=== PATIENT | female | born 1960 | race Caucasian/White ===

== ENCOUNTER 2017-08-17 12:52 | Inpatient (IN) | payer MEDICARE ==
[2017-08-17] MEDS ORDERED: ONDANSETRON 4 MG/2 ML VIAL IVP STA (13:16)
[2017-08-17] MEDS ORDERED: SODIUM CHLORIDE 0.9% 1,000 ML IV STA (13:16)
[2017-08-17 13:17] LABS: Glucose,Whole Blood 146 mg/dL (75-99)
[2017-08-17 13:35] LABS: Basophils # (A) 0.1 k/uL (0-0.2); Basophils % (A) 1 %; Eosinophils # (A) 0.1 k/uL (0-0.7); Eosinophils % (A) 1 %; HCT 42.4 % (34.0-46.0); HGB 13.6 gm/dL (11.4-16.0); Lymphocytes # (A) 2.2 k/uL (1.0-4.8); Lymphocytes % (A) 17 %; MCH 30.1 pg (25.0-35.0); MCHC 32.1 g/dL (31.0-37.0); MCV 93.6 fL (80.0-100.0); Mean Platelet Volume 7.4; Monocytes # (A) 0.4 k/uL (0-1.0); Monocytes % (A) 3 %; Neutrophils # (A) 9.5 k/uL (1.3-7.7); Neutrophils % (A) 77 %; Platelet Count 345 k/uL (150-450); RBC 4.53 m/uL (3.80-5.40); RDW 12.6 % (11.5-15.5); WBC 12.4 k/uL (3.8-10.6)
[2017-08-17 13:43] LABS: INR 1.1 (<1.2); Partial Thromboplastin Time 25.6 sec (22.0-30.0); Prothrombin Time 10.8 sec (9.0-12.0)
[2017-08-17 13:44] LABS: ALT 35 U/L (9-52); AST 25 U/L (14-36); Albumin 4.2 g/dL (3.5-5.0); Alkaline Phosphatase 96 U/L (38-126); Anion Gap 14 mmol/L; Blood Urea Nitrogen 14 mg/dL (7-17); Calcium 9.9 mg/dL (8.4-10.2); Carbon Dioxide 24 mmol/L (22-30); Chloride 104 mmol/L (98-107); Glucose 136 mg/dL (74-99); Potassium 3.7 mmol/L (3.5-5.1); Sodium 142 mmol/L (137-145); Total Bilirubin 1.1 mg/dL (0.2-1.3); Total Protein 7.9 g/dL (6.3-8.2)
[2017-08-17 13:55] LABS: Creatine Kinase 69 U/L (30-135)
[2017-08-17 14:08] LABS: Creatine Kinase MB <0.2 ng/mL (0.0-2.4); Troponin I <0.012 ng/mL (0.000-0.034)
--- NOTE | 2017-08-17 14:18 | CT ---
CT brain without contrast HISTORY: Left-sided numbness Helical acquisition through the brain, dose reduction techniques utilized DLP 1147.75 Cerebral vascular calcifications are present. There is no hemorrhage or hydrocephalus. Periventricula r and subcortical white matter shows patchy low attenuation. No mass effect. Calvarium is intact. Inf lammatory change present in the sphenoid ethmoidal region. The orbits show symmetric appearance. Ques tionable prominence of the basilar artery at its tip. Low-attenuation in the basal ganglia and caudat e on the right is compatible with local encephalomalacia or possibly subacute infarct. IMPRESSION: Chronic small vessel ischemic changes. Consider MRI to assess for subacute infarct. No ev ident hemorrhage.
--- NOTE | 2017-08-17 14:28 | CT ---
EXAMINATION TYPE: CODE STROKE: CTA head neck DATE OF EXAM: 08/17/2017 HISTORY: Left sided numbness. COMPARISON: NONE CT DLP: 443.25 mGycm. Automated Exposure Control for Dose Reduction was Utilized. TECHNIQUE: CTA scan of the neck is performed with IV Contrast, patient injected with 65 mL of , axia l images are obtained, coronal and sagittal reformatted images are reviewed. Three-D reconstructed im ages are created on an independent workstation and reviewed. FINDINGS: Carotid/Vascular Structures: There is no evident filling defect to suggest embolism. Prominence of th e basilar tip on noncontrast exam is artifactual, there is no evident aneurysm in the [place] shows patent anterior and posterior circulation. 3 super aortic branch vessels ar e present, there is atheromatous change present, the subclavian arteries, innominate, left and right common carotid arteries are patent. No significant stenosis of the proximal internal carotid arteries is evident. There are atheromatous changes present at the carotid bulb levels. The vertebral arterie s are patent. Other: Multiple poorly defined nodular densities are present in the upper lobes bilaterally. Postop c hanges are noted to the cervical spine. IMPRESSION: Nonspecific upper lobe areas of increased attenuation within the lungs could be due to he morrhage, infection. Findings could represent metastatic disease within the lungs, correlate. No evid ent emboli phenomenon to the brain
--- NOTE | 2017-08-17 14:30 | XR ---
EXAMINATION TYPE: XR chest 2V DATE OF EXAM: 08/17/2017 COMPARISON: NONE HISTORY: Shortness of breath TECHNIQUE: Frontal and lateral views of the chest are obtained. FINDINGS: Scattered senescent parenchymal changes noted. Hyperinflation compatible with COPD. No evidence for infiltrate. No evidence for atelectasis. Heart size is stable. Mediastinal structures are stable and grossly unremarkable. No evidence for hilar prominence. Degenerative changes dorsal spine. IMPRESSION: 1. No evidence for acute pulmonary disease.
--- NOTE | 2017-08-17 14:35 | ED ---
Neuro HPI - General Chief Complaint: Neuro Symptoms/Deficit Stated Complaint: Stroke symtoms Time Seen by Provider: 08/17/17 13:11 Source: EMS Mode of arrival: EMS Limitations: no limitations - History of Present Illness Is the patient presenting with stroke symptoms?: Yes Last Known Well Date: 08/16/17 Last Known Well Time: 21:00 Onset/Timin -: unknown, awoke with symptoms Initial Comments: 56 years old female went to bed last night around 9 PM she was feeling fine she woke up 7 AM this morning she was unable to move her left upper extremity and left lower extremity, she has no idea what time the symptoms started she noticed her symptoms 7 AM this morning. She does have a headache no blurred vision no chest pain or shortness of breath no abdominal pain no frequency urgency dysuria she definitely had a CVA. She does have a history of myocardial infarction, severe coronary artery disease she has a stent in place and she is on a blood thinners, she did take aspirin this morning at home and she noticed symptoms Time: 21:00 Last Observed Normal: 21:00 Location: speech, left arm, left leg History of same: No Place: home Severity: severe Quality: constant Improves With: none Worsens With: none On Anticoagulants: Yes (plavix) Context: recent fall (She fell this morning and complaining about left-sided rib cage pain), other (unknown) Associated Symptoms: headaches Treatments Prior to Arrival: Aspirin (Home meds reviewed), other (plavix) - Related Data Home Medications: Home Medications Medication Instructions Recorded Confirmed Adalimumab [Humira Pen] 40 mg SQ TH 08/17/17 08/17/17 Aspirin 81 mg PO DAILY 08/17/17 08/17/17 Carvedilol [Coreg] 3.125 mg PO BID 08/17/17 08/17/17 Clopidogrel Bisulfate [Plavix] 75 mg PO DAILY 08/17/17 08/17/17 Diazepam [Valium] 5 mg PO BID PRN 08/17/17 08/17/17 Ergocalciferol [Vitamin D2] 50,000 unit PO TU 08/17/17 08/17/17 Folic Acid 1 mg PO DAILY 08/17/17 08/17/17 Levothyroxine Sodium [Synthroid] 125 mcg PO DAILY 08/17/17 08/17/17 Lisinopril [Prinivil] 20 mg PO DAILY 08/17/17 08/17/17 Methotrexate Injection 20 mg SQ WE 08/17/17 08/17/17 Nitroglycerin Sl Tabs [Nitrostat] 0.4 mg SUBLINGUAL Q5M PRN 08/17/17 08/17/17 oxyCODONE HCL/ACETAMINOPHEN 1 tab PO TID PRN 08/17/17 08/17/17 [Percocet 10-325 mg] Allergies/Adverse Reactions: Allergies Allergy/AdvReac Type Severity Reaction Status Date / Time prochlorperazine Allergy Unknown Verified 08/17/17 13:27 [From Compazine] Review of Systems ROS Statement: Those systems with pertinent positive or pertinent negative responses have been documented in the HPI. ROS Other: All systems not noted in ROS Statement are negative. General Exam Limitations: no limitations Stroke MDM - Lab Data Result diagrams: 08/17/17 13:00 08/17/17 13:00 Lab Results 08/17/17 08/17/17 08/17/17 Range/Units 13:00 13:00 13:00 WBC 12.4 H (3.8-10.6) k/uL RBC 4.53 (3.80-5.40) m/uL Hgb 13.6 (11.4-16.0) gm/dL Hct 42.4 (34.0-46.0) % MCV 93.6 (80.0-100.0) fL MCH 30.1 (25.0-35.0) pg MCHC 32.1 (31.0-37.0) g/dL RDW 12.6 (11.5-15.5) % Plt Count 345 (150-450) k/uL Neutrophils % 77 % Lymphocytes % 17 % Monocytes % 3 % Eosinophils % 1 % Basophils % 1 % Neutrophils # 9.5 H (1.3-7.7) k/uL Lymphocytes # 2.2 (1.0-4.8) k/uL Monocytes # 0.4 (0-1.0) k/uL Eosinophils # 0.1 (0-0.7) k/uL Basophils # 0.1 (0-0.2) k/uL PT (9.0-12.0) sec INR (<1.2) APTT (22.0-30.0) sec Sodium 142 (137-145) mmol/L Potassium 3.7 (3.5-5.1) mmol/L Chloride 104 (98-107) mmol/L Carbon Dioxide 24 (22-30) mmol/L Anion Gap 14 mmol/L BUN 14 (7-17) mg/dL Creatinine 0.59 (0.52-1.04) mg/dL Est GFR (MDRD) Af Amer >60 (>60 ml/min/1.73 sqM) Est GFR (MDRD) Non-Af >60 (>60 ml/min/1.73 sqM) Glucose 136 H (74-99) mg/dL POC Glucose (mg/dL) (75-99) mg/dL POC Glu Relay Engineer ID Calcium 9.9 (8.4-10.2) mg/dL Total Bilirubin 1.1 (0.2-1.3) mg/dL AST 25 (14-36) U/L ALT 35 (9-52) U/L Alkaline Phosphatase 96 (38-126) U/L Total Creatine Kinase 69 (30-135) U/L CK-MB (CK-2) <0.2 (0.0-2.4) ng/mL CK-MB (CK-2) Rel Index Troponin I <0.012 (0.000-0.034) ng/mL Total Protein 7.9 (6.3-8.2) g/dL Albumin 4.2 (3.5-5.0) g/dL 08/17/17 08/17/17 Range/Units 13:00 13:15 WBC (3.8-10.6) k/uL RBC (3.80-5.40) m/uL Hgb (11.4-16.0) gm/dL Hct (34.0-46.0) % MCV (80.0-100.0) fL MCH (25.0-35.0) pg MCHC (31.0-37.0) g/dL RDW (11.5-15.5) % Plt Count (150-450) k/uL Neutrophils % % Lymphocytes % % Monocytes % % Eosinophils % % Basophils % % Neutrophils # (1.3-7.7) k/uL Lymphocytes # (1.0-4.8) k/uL Monocytes # (0-1.0) k/uL Eosinophils # (0-0.7) k/uL Basophils # (0-0.2) k/uL PT 10.8 (9.0-12.0) sec INR 1.1 (<1.2) APTT 25.6 (22.0-30.0) sec Sodium (137-145) mmol/L Potassium (3.5-5.1) mmol/L Chloride (98-107) mmol/L Carbon Dioxide (22-30) mmol/L Anion Gap mmol/L BUN (7-17) mg/dL Creatinine (0.52-1.04) mg/dL Est GFR (MDRD) Af Amer (>60 ml/min/1.73 sqM) Est GFR (MDRD) Non-Af (>60 ml/min/1.73 sqM) Glucose (74-99) mg/dL POC Glucose (mg/dL) 146 H (75-99) mg/dL POC Glu Relay Engineer ID [place], Genia Calcium (8.4-10.2) mg/dL Total Bilirubin (0.2-1.3) mg/dL AST (14-36) U/L ALT (9-52) U/L Alkaline Phosphatase (38-126) U/L Total Creatine Kinase (30-135) U/L CK-MB (CK-2) (0.0-2.4) ng/mL CK-MB (CK-2) Rel Index Troponin I (0.000-0.034) ng/mL Total Protein (6.3-8.2) g/dL Albumin (3.5-5.0) g/dL Past Medical History Past Medical History: Hypertension Additional Past Medical History / Comment(s): lupus, sjogrens History of Any Multi-Drug Resistant Organisms: None Reported Past Surgical History: Adenoidectomy, Appendectomy, Cholecystectomy, Heart Catheterization With Stent, Hysterectomy, Tonsillectomy Past Psychological History: No Psychological Hx Reported Smoking Status: Current every day smoker Past Alcohol Use History: None Reported Past Drug Use History: None Reported Course Vital Signs 08/17/17 08/17/17 08/17/17 12:53 13:08 13:23 Temperature 99.8 F H Pulse Rate 88 80 92 Respiratory 18 18 18 Rate Blood Pressure 187/91 173/83 188/83 O2 Sat by Pulse 97 97 97 Oximetry 08/17/17 08/17/17 13:53 15:18 Temperature Pulse Rate 81 89 Respiratory 18 18 Rate Blood Pressure 182/82 185/77 O2 Sat by Pulse 99 96 Oximetry Him EKG is normal sinus rhythm ventricular rate is 88 OR interval is 150 QRS duration is 92 QT/QTc is 400/484 review of this EKG reveals T-wave inversion in lead [address] elevation or ST depression noticed this EKG She is reassessed at 1420, white count is slightly elevated INR is normal troponin is normal, BS metabolic panel is all normal EKG is within normal range head CT is unremarkable, CT angiogram chest x-ray are pending at this point that ,, considering, CVA And definitely sometime between 9 PM last night and 7 AM this morning considering that she is not a candidate for any thrombolytics at this point she be admitted to Dr. Kaur service and will consult neurology - Reevaluation(s) Reevaluation #1: I did speak with Dr. Polanco at the 15th for reduction and agrees with the aspirin 81 mg daily 15:49 Reevaluation #2: Also noticed some findings on the chest where there is a question of metastatic disease that needs to be sorted out (admitted 08/17/17 15:50 Disposition Clinical Impression: CVA (cerebral vascular accident), Hypertension, Lung nodules Disposition: ADMITTED IP TO THIS HOSP
[2017-08-17] MEDS ORDERED: NALOXONE 0.4 MG/ML 1 ML VIAL IV PRN (14:43)
[2017-08-17] MEDS ORDERED: NITROGLYCERIN SL TABS 0.4 MG TAB SUBLINGUAL PRN (14:47)
[2017-08-17] MEDS ORDERED: ADALIMUMAB 80 MG/1.6 ML KIT SQ SCH (15:00)
[2017-08-17] MEDS ORDERED: LORazepam 1 MG TAB PO STA (15:55)
[2017-08-17] MEDS: oxyCODONE-APAP 10-325MG 1 EACH TAB PO PRN (19:53)
[2017-08-17] MEDS: CARVEDILOL 3.125 MG TAB PO SCH (20:47)
[2017-08-18] MEDS: DIAZEPAM 5 MG TAB PO PRN ×3 (01:03→22:07)
[2017-08-18] MEDS: oxyCODONE-APAP 10-325MG 1 EACH TAB PO PRN ×4 (02:48→23:20)
[2017-08-18 06:07] LABS: Basophils # (A) 0.1 k/uL (0-0.2); Basophils % (A) 1 %; Eosinophils # (A) 0.2 k/uL (0-0.7); Eosinophils % (A) 1 %; HCT 38.1 % (34.0-46.0); HGB 12.5 gm/dL (11.4-16.0); Lymphocytes # (A) 3.5 k/uL (1.0-4.8); Lymphocytes % (A) 28 %; MCH 30.2 pg (25.0-35.0); MCHC 32.9 g/dL (31.0-37.0); MCV 91.9 fL (80.0-100.0); Mean Platelet Volume 6.7; Monocytes # (A) 0.5 k/uL (0-1.0); Monocytes % (A) 4 %; Neutrophils % (A) 64 %; Platelet Count 311 k/uL (150-450); RBC 4.15 m/uL (3.80-5.40); RDW 12.7 % (11.5-15.5); WBC 12.5 k/uL (3.8-10.6)
[2017-08-18 06:24] LABS: Anion Gap 12 mmol/L; Blood Urea Nitrogen 12 mg/dL (7-17); Carbon Dioxide 25 mmol/L (22-30); Chloride 106 mmol/L (98-107); Cholesterol 198 mg/dL (<200); Glucose 100 mg/dL (74-99); HDL Cholesterol 28 mg/dL (40-60); LDL Cholesterol,Calculated 141 mg/dL (0-99); Potassium 3.1 mmol/L (3.5-5.1); Sodium 143 mmol/L (137-145); Triglycerides 143 mg/dL (<150)
[2017-08-18] MEDS: CARVEDILOL 3.125 MG TAB PO SCH ×2 (06:44→15:48)
[2017-08-18] MEDS: LEVOTHYROXINE 125 MCG TAB PO SCH (06:44)
[2017-08-18] MEDS: FOLIC ACID 1 MG TAB PO SCH (08:03)
[2017-08-18] MEDS: LISINOPRIL 20 MG TAB PO SCH (08:03)
[2017-08-18] MEDS ORDERED: LISINOPRIL 20 MG TAB PO SCH (09:00)
[2017-08-18] MEDS: ONDANSETRON 4 MG/2 ML VIAL IVP PRN (10:05)
[2017-08-18] MEDS: CLOPIDOGREL 75 MG TAB PO SCH (12:18)
[2017-08-18] MEDS: ASPIRIN 81 MG PO SCH (12:18)
--- NOTE | 2017-08-18 13:55 | HP ---
HISTORY AND PHYSICAL CHIEF COMPLAINT: Left hemiparesis. HISTORY OF PRESENT ILLNESS: This is the first admission for this 56-year-old white female. She woke up in the morning and could not move the left side. She had no difficulty with speech. She had no headache. She had no chest pain, syncope, change in vision hearing, etc. She came to emergency room where she was found to have a dense right CVA. She had a CTA of the brain that was negative. REVIEW OF SYSTEMS: She has had no other symptoms. She has had no fever, chills, cough, abdominal pain, vomiting, diarrhea, urinary complaints, diabetes, etc. Past medical history, family history and personal and social histories reveal that she is allergic to COMPAZINE. Surgically, she has had hysterectomy, appendectomy, cholecystectomy, and a procedure on her neck. She has coronary artery disease and has had stent placed in her LAD. She also has hypertension. She does smoke. She also has a history of lupus and Sjogren's syndrome. PHYSICAL EXAMINATION: Blood pressure is 146/90 with a pulse of 83, respirations of 32 and she is afebrile. In general, she appeared to be well developed, well nourished, in no acute distress. Skin color is normal. Skin is warm, dry. Lymph nodes are not enlarged. Head, ears, eyes, nose, mouth, and throat were normal. Neck veins were not distended. Thyroid is not enlarged. Carotids normal. There are no bruits. The chest is clear to auscultation and percussion. Cardiac exam demonstrated a normal sinus rhythm and no murmurs or extra sounds. Abdomen is soft and nontender without visceromegaly or masses. Bowel sounds are present. Extremities were normal. Neurologically, she had a dense left hemiparesis. Cognitive function was normal and speech was. She is right-handed. She is admitted to the hospital with diagnoses: 1. Completed right-sided cerebrovascular accident with left hemiparesis. 2. History of hypertension. 3. History of lupus. 4. Sjogren's syndrome. 5. History of coronary artery disease, status post stenting in the LAD. 6. Chronic obstructive pulmonary disease. PLAN: 1. Bed rest. 2. IV fluids. 3. Neurology consult. 4. OT, PT and discharge planning. MMODL / IJN: [id number] /
[2017-08-18 14:15] VITALS: BMI 22.6
--- NOTE | 2017-08-18 15:55 | PN ---
PROGRESS NOTE CHIEF COMPLAINT: Right-sided CVA with a dense left hemiparesis. HISTORY OF PRESENT ILLNESS: This lady is now stable and there has been no interval change. She is clearly very concerned. PHYSICAL EXAM: She is oriented and alert. Speech is normal. Carotids normal and the chest is clear. Cardiac is normal with no murmurs or extra sounds. The abdomen is soft, nontender. Dense left hemiparesis remains. IMPRESSION: 1. Right-sided cerebrovascular accident. 2. Hypokalemia. PLAN: 1. MRI of the brain. 2. Increase activity. 3. PT and OT. MMODL / IJN: [id number] /
--- NOTE | 2017-08-18 17:23 | P.CONS ---
History of Present Illness - Reason for Consult Consult date: 08/18/17 Stroke - Chief Complaint Sided weakness - History of Present Illness She is a pleasant 56-year-old female being evaluated by the neurology service for stroke. She was in her bed at home about 7 AM this morning unable to move her left upper and lower extremities. She denied headache or head injury. She denied recent illness. She denied having any difficulty with speech or word finding. There was no loss of consciousness or chest pain. She had no changes in her hearing or vision. She has a very significant history of cardiovascular disease. Her home medications are included Plavix and aspirin. She says she is ALLERGIC to all cholesterol medications. Initial CT of the brain was done in the emergency room and showed only chronic small vessel ischemic changes. There were no acute intracranial abnormalities. However there was low attenuation in the basal ganglia and caudate on the right which may be compatible with the area of local encephalomalacia or subacute infarct. An MRI has been ordered already. At this time my exam she is being evaluated by physical therapy and she is showing complete left-sided weakness. Review of Systems All systems: negative Constitutional: Reports as per HPI Past Medical History Past Medical History: Hypertension Additional Past Medical History / Comment(s): lupus, sjogrens Last Myocardial Infarction Date:: UNK History of Any Multi-Drug Resistant Organisms: None Reported Past Surgical History: Adenoidectomy, Appendectomy, Cholecystectomy, Heart Catheterization With Stent, Hysterectomy, Tonsillectomy Additional Past Surgical History / Comment(s): CERVICAL FUSION HAS PLATE/SCREWS AND CADAVER BONE. Past Anesthesia/Blood Transfusion Reactions: No Reported Reaction Date of Last Stent Placement:: UNK Past Psychological History: No Psychological Hx Reported Smoking Status: Current every day smoker Past Alcohol Use History: None Reported Past Drug Use History: None Reported - Past Family History Mother Family Medical History: Coronary Artery Disease (CAD), Diabetes Mellitus Additional Family Medical History / Comment(s): CABG Father Family Medical History: Coronary Artery Disease (CAD), Diabetes Mellitus, Myocardial Infarction ([place]), Vascular Disorder Medications and Allergies Home Medications Medication Instructions Recorded Confirmed Type Adalimumab [Humira Pen] 40 mg SQ TH 08/17/17 08/17/17 History Carvedilol [Coreg] 3.125 mg PO BID 08/17/17 08/17/17 History Clopidogrel Bisulfate [Plavix] 75 mg PO DAILY 08/17/17 08/17/17 History Diazepam [Valium] 5 mg PO BID PRN 08/17/17 08/17/17 History Ergocalciferol [Vitamin D2] 50,000 unit PO TU 08/17/17 08/17/17 History Levothyroxine Sodium [Synthroid] 125 mcg PO DAILY 08/17/17 08/17/17 History Lisinopril [Prinivil] 20 mg PO DAILY 08/17/17 08/17/17 History Methotrexate Injection 20 mg SQ WE 08/17/17 08/17/17 History Nitroglycerin Sl Tabs [Nitrostat] 0.4 mg SUBLINGUAL Q5M PRN 08/17/17 08/17/17 History RX: Aspirin 81 mg PO DAILY 08/17/17 08/17/17 History RX: Folic Acid 1 mg PO DAILY 08/17/17 08/17/17 History oxyCODONE HCL/ACETAMINOPHEN 1 tab PO TID PRN 08/17/17 08/17/17 History [Percocet 10-325 mg] Allergies Allergy/AdvReac Type Severity Reaction Status Date / Time prochlorperazine Allergy Unknown Verified 08/17/17 13:27 [From Compazine] Cmrnnzc-Tzy-Zks Reductase Allergy Unknown Verified 08/18/17 17:12 Inhibitor Physical Exam Vitals: Vital Signs Temp Pulse Pulse Resp BP BP Pulse Ox 08/18/17 15:58 16 08/18/17 15:53 68 16 195/92 96 08/18/17 11:58 16 08/18/17 11:56 67 16 159/87 94 L 08/18/17 08:00 97.4 F L 73 16 150/86 08/18/17 04:00 99.6 F 84 18 178/84 95 08/18/17 03:28 73 18 08/18/17 00:00 99 F 73 18 175/78 98 08/17/17 20:00 98.8 F 89 18 200/92 98 08/17/17 18:48 97.8 F 97 18 195/91 98 Intake and Output 08/18/17 08/18/17 08/18/17 06:59 14:59 22:59 Intake Total 820 955 Output Total 100 Balance 820 855 Intake: IV 60 0.9 @ 20ml 60 Intake, IV Titration 560 600 Amount Sodium Chloride 0.9% 1, 560 600 000 ml @ 100 mls/hr IV . Q10H STA Rx#:[id number] Oral 200 355 Output: Urine 100 Other: Voiding Method Bedside Commode Bedside Commode Bedside Commode # Voids 1 Weight 56.3 kg 56.3 kg Patient Weight 08/19/17 06:59 Weight 56.3 kg - Constitutional General appearance: no average body habitus, cooperative, mild distress, thin - EENT Eyes: no abnormal pupil, EOMI, PERRLA, no ptosis ENT: hearing grossly normal - Neck Neck: normal ROM, no rigidity - Respiratory Respiratory: negative: prolonged expiration, prolonged inspiration - Cardiovascular Rhythm: regular - Gastrointestinal General gastrointestinal: no distended, no tenderness - Neurologic She is alert awake and oriented 3. Speech and language are normal. She has left facial droop. There is left hemiparesis. Significant sensory deficit is found in the left upper and lower extremities. She does have sensation in the left face but there is continuous numbness and tingling. There is no right sided weakness or sensory deficit. I did have her take a drink of her soda at bedside through the straw. She did seem to aspirate a little and started coughing. Her family said that she ate her entire meal and drank her liquids without incidence. Results CBC & Chem 7: 08/18/17 05:52 08/18/17 05:52 Labs: Abnormal Lab Results - Last 24 Hours (Table) 08/18/17 08/18/17 Range/Units 05:52 05:52 WBC 12.5 H (3.8-10.6) k/uL Neutrophils # 8.0 H (1.3-7.7) k/uL Potassium 3.1 L (3.5-5.1) mmol/L Glucose 100 H (74-99) mg/dL LDL Cholesterol, Calc 141 H (0-99) mg/dL HDL Cholesterol 28 L (40-60) mg/dL Assessment and Plan (1) Lupus Current Visit: Yes Status: Chronic Code(s): L93.0 - DISCOID LUPUS ERYTHEMATOSUS SNOMED Code(s): 959299552 (2) Sjoegren syndrome Current Visit: Yes Status: Chronic Code(s): M35.00 - SICCA SYNDROME, UNSPECIFIED SNOMED Code(s): 13086901 (3) Coronary artery disease Current Visit: Yes Status: Chronic Code(s): I25.10 - ATHSCL HEART DISEASE OF [place] CORONARY ARTERY W/O ANG PCTRS SNOMED Code(s): 52986466 (4) COPD (chronic obstructive pulmonary disease) Current Visit: Yes Status: Chronic Code(s): J44.9 - CHRONIC OBSTRUCTIVE PULMONARY DISEASE, UNSPECIFIED SNOMED Code(s): 04930217 (5) Left hemiparesis Current Visit: Yes Status: Acute Code(s): G81.94 - HEMIPLEGIA, UNSPECIFIED AFFECTING LEFT NONDOMINANT SIDE SNOMED Code(s): 754380354 (6) Dysphagia Current Visit: Yes Status: Acute Code(s): R13.10 - DYSPHAGIA, UNSPECIFIED SNOMED Code(s): 52906692 (7) CVA (cerebral vascular accident) Current Visit: Yes Status: Acute Code(s): I63.9 - CEREBRAL INFARCTION, UNSPECIFIED SNOMED Code(s): 465936880 (8) Hypertension Current Visit: Yes Status: Chronic Code(s): I10 - ESSENTIAL (PRIMARY) HYPERTENSION SNOMED Code(s): 27449503 Plan: She seems to have suffered a significant stroke in a right middle cerebral artery distribution. As above MRI is pending. She will continue anticoagulation as prescribed. She is ALLERGIC to all antihyperlipidemics. Physical therapy, occupational therapy, and speech therapy will continue to evaluate. Continue neurological checks. She had a CTA of the head and neck that showed no significant flow-limiting stenosis. There was finding of a possible area of increased attenuation in the upper low of the lungs. A chest x -ray was normal. Because of her fall she is having some significant tenderness on the left side in the lower ribs. I will order a rib series to check for fracture. We will continue to follow and make further recommendations based on the above studies. I have performed a history and physical on the above patient. I have reviewed the above note, and agree.
--- NOTE | 2017-08-18 20:17 | XR ---
EXAMINATION TYPE: XR ribs LT DATE OF EXAM: 08/18/2017 COMPARISON: NONE HISTORY: Left rib pain after a fall TECHNIQUE: 4 views FINDINGS: I see no pleural effusion or pneumothorax. Left lung is clear of infiltrate. I see no rib f racture. IMPRESSION: Negative left rib exam.
[2017-08-18] MEDS: POTASSIUM CHLORIDE ER 20 MEQ TAB.ER PO SCH (20:33)
--- NOTE | 2017-08-19 01:04 | MR ---
EXAMINATION TYPE: MR brain wo/w con DATE OF EXAM: 08/18/2017 COMPARISON: NONE HISTORY: Left sided numbness, TECHNIQUE: Multiplanar, multisequence images of the brain and brainstem is performed without and with IV contras t, utilizing 5.5 mL intravenous Gadavist . FINDINGS: On the diffusion images there is a somewhat linear area of abnormal increased signal in the basal khalif glia on the right side involving the right internal capsule. This measures 4 x 1 cm and is consistent with acute infarct. There is no midline shift. There is no sign of intracranial hemorrhage. I see no other areas of acute infarct. Ventricles of normal size. There is no mass effect. On the FLAIR images there are numerous foci of abnormal increased signal in the periventricular white matter. Total number is probably 50. These measure up to 1 cm. The brainstem is intact. Cerebellum is intact. The sella turcica appears normal. Contrast images show no pathologic enhancement. IMPRESSION: There is evidence of an acute large infarct in the right internal capsule. No hemorrhage. Extensive white matter changes in both cerebral hemispheres. I would consider both demyelinating dise ase and extensive chronic small vessel ischemia. Clinical correlation is recommended.
[2017-08-19] MEDS: CARVEDILOL 3.125 MG TAB PO SCH ×2 (06:45→16:42)
[2017-08-19] MEDS: LEVOTHYROXINE 125 MCG TAB PO SCH (06:45)
[2017-08-19] MEDS: oxyCODONE-APAP 10-325MG 1 EACH TAB PO PRN ×2 (06:45→16:45)
[2017-08-19] MEDS: ASPIRIN 81 MG PO SCH (09:21)
[2017-08-19] MEDS: LISINOPRIL 20 MG TAB PO SCH (09:21)
[2017-08-19] MEDS: CLOPIDOGREL 75 MG TAB PO SCH (09:21)
[2017-08-19] MEDS: POTASSIUM CHLORIDE ER 20 MEQ TAB.ER PO SCH ×2 (09:22→20:54)
[2017-08-19] MEDS: FOLIC ACID 1 MG TAB PO SCH (11:28)
[2017-08-19] MEDS: DIAZEPAM 5 MG TAB PO PRN ×2 (11:28→22:11)
--- NOTE | 2017-08-19 14:26 | PN ---
PROGRESS NOTE CHIEF COMPLAINT: CVA. HISTORY OF PRESENT ILLNESS: This lady's condition is unchanged. She still has a dense left hemiparesis. She is very upset about this. She is quite depressed. This is all understandable. She is also was complaining of some pain over the xiphoid process, which is probably related to her falling. REVIEW OF SYSTEMS: She has no other new complaints or concerns. PHYSICAL EXAM: CHEST: Clear. The cardiac exam is normal. She is a bit tender over the sternum. Abdomen is soft, nontender and hemiparesis is same. IMPRESSION: 1. Right-sided CVA with left hemiparesis. 2. Tenderness and pain over the xiphoid process probably due to trauma. PLAN: We talked to her at length about the plan for rehab and physical therapy and she may she may decide to have this done in the [place] area which would be reasonable because she has more friends in that area. She lives with a boyfriend who apparently just had surgery and probably will not be able to help her out much in short run. MMODL / IJN: [id number] /
--- NOTE | 2017-08-19 16:23 | P.PN ---
Subjective Progress Note Date: 08/19/17 Principal diagnosis: Stroke This is a pleasant 56-year-old female continuing to be evaluated by the neurology service for stroke. She continues to have dense left hemiparesis. She was having some problems swallowing liquids but this was found to be only through a straw. She has been drinking and eating without evidence of choking or aspiration. Her MRI of the brain did show a right internal carotid stroke. With diffuse chronic small vessel ischemic changes. She has a significant history of cardiovascular disease. She is already on Plavix and aspirin. She is ALLERGIC to all cholesterol medications. At the time of my evaluation she is resting comfortably in bed in no acute distress. She is still having some lower sternum and left lower rib pain. Her x-ray of the ribs was normal. Objective - Vital Signs Vital signs: Vital Signs Temp 99.3 F 08/19/17 15:48 Pulse 72 08/19/17 16:00 Resp 16 08/19/17 16:00 BP 134/85 08/19/17 15:48 Pulse Ox 94 L 08/19/17 15:48 Intake & Output 08/18/17 08/19/17 08/19/17 18:59 06:59 18:59 Intake Total 1192 320 354 Output Total 100 800 Balance 1092 -480 354 Weight 56.3 kg 61.5 kg Intake: IV 320 0.9 @ 20ml 320 Intake, IV Titration 600 Amount Sodium Chloride 0.9% 1, 600 000 ml @ 100 mls/hr IV . Q10H STA Rx#:[id number] Oral 592 354 Output: Urine 100 800 Other: Voiding Method Bedside Commode Bedside Commode Bedside Commode # Voids 3 1 - Constitutional General appearance: Present: average body habitus, cooperative, no acute distress - EENT Eyes: Present: EOMI, PERRLA. Absent: abnormal pupil, ptosis ENT: Present: hearing grossly normal - Neck Neck: Present: normal ROM. Absent: rigidity - Respiratory Respiratory: negative: prolonged expiration, prolonged inspiration - Cardiovascular Rhythm: regular - Neurologic Neurologic Comment(s): She is alert awake and oriented 3. Speech and language are normal. Left facial droop remains. No significant movement of the left upper or lower extremity. Definite sensory deficit in upper and lower left extremities. No tremors or seizure-like activities are seen. No deficits on the right side. - Labs CBC & Chem 7: 08/18/17 05:52 08/18/17 05:52 Assessment and Plan (1) Lupus Current Visit: Yes Status: Chronic Code(s): L93.0 - DISCOID LUPUS ERYTHEMATOSUS SNOMED Code(s): 305061543 (2) Sjoegren syndrome Current Visit: Yes Status: Chronic Code(s): M35.00 - SICCA SYNDROME, UNSPECIFIED SNOMED Code(s): 33866518 (3) Coronary artery disease Current Visit: Yes Status: Chronic Code(s): I25.10 - ATHSCL HEART DISEASE OF [place] CORONARY ARTERY W/O ANG PCTRS SNOMED Code(s): 92432307 (4) COPD (chronic obstructive pulmonary disease) Current Visit: Yes Status: Chronic Code(s): J44.9 - CHRONIC OBSTRUCTIVE PULMONARY DISEASE, UNSPECIFIED SNOMED Code(s): 86361603 (5) Left hemiparesis Current Visit: Yes Status: Acute Code(s): G81.94 - HEMIPLEGIA, UNSPECIFIED AFFECTING LEFT NONDOMINANT SIDE SNOMED Code(s): 279311278 (6) Dysphagia Current Visit: Yes Status: Acute Code(s): R13.10 - DYSPHAGIA, UNSPECIFIED SNOMED Code(s): 19539058 (7) CVA (cerebral vascular accident) Current Visit: Yes Status: Acute Code(s): I63.9 - CEREBRAL INFARCTION, UNSPECIFIED SNOMED Code(s): 053490576 (8) Hypertension Current Visit: Yes Status: Chronic Code(s): I10 - ESSENTIAL (PRIMARY) HYPERTENSION SNOMED Code(s): 01801414 Plan: She has suffered a significant stroke of the right internal capsule. MRI results were discussed with her and her daughter at bedside. She will continue anticoagulation as prescribed. She is ALLERGIC to all antihyperlipidemics. Physical therapy, occupational therapy, and speech therapy will continue to work with her. Continue neurological checks. Transfer to an inpatient rehabilitation facility is already being planned. We can be consult it on an as -needed basis. I have performed a history and physical on the above patient. I have reviewed the above note, and agree.
[2017-08-19] MEDS: ONDANSETRON 4 MG/2 ML VIAL IVP PRN (20:54)
[2017-08-20] MEDS: oxyCODONE-APAP 10-325MG 1 EACH TAB PO PRN ×2 (02:32→18:59)
[2017-08-20] MEDS: CARVEDILOL 3.125 MG TAB PO SCH ×2 (07:30→16:50)
[2017-08-20] MEDS: LEVOTHYROXINE 125 MCG TAB PO SCH (07:30)
[2017-08-20 07:33] LABS: Anion Gap 11 mmol/L; Blood Urea Nitrogen 21 mg/dL (7-17); Carbon Dioxide 30 mmol/L (22-30); Chloride 105 mmol/L (98-107); Glucose 96 mg/dL (74-99); Sodium 146 mmol/L (137-145)
[2017-08-20] MEDS: FOLIC ACID 1 MG TAB PO SCH (07:59)
[2017-08-20] MEDS: LISINOPRIL 20 MG TAB PO SCH (07:59)
[2017-08-20] MEDS: CLOPIDOGREL 75 MG TAB PO SCH (07:59)
[2017-08-20] MEDS: ASPIRIN 81 MG PO SCH (07:59)
[2017-08-20] MEDS: POTASSIUM CHLORIDE ER 20 MEQ TAB.ER PO SCH ×2 (07:59→20:44)
[2017-08-20] MEDS: DIAZEPAM 5 MG TAB PO PRN (20:44)
[2017-08-21] MEDS: oxyCODONE-APAP 10-325MG 1 EACH TAB PO PRN ×2 (06:00→18:36)
[2017-08-21] MEDS: LEVOTHYROXINE 125 MCG TAB PO SCH (06:17)
[2017-08-21] MEDS: CARVEDILOL 3.125 MG TAB PO SCH ×2 (06:18→17:06)
[2017-08-21] MEDS: POTASSIUM CHLORIDE ER 20 MEQ TAB.ER PO SCH ×2 (10:00→20:06)
[2017-08-21] MEDS: CLOPIDOGREL 75 MG TAB PO SCH (10:00)
[2017-08-21] MEDS: ASPIRIN 81 MG PO SCH (10:00)
[2017-08-21] MEDS: FOLIC ACID 1 MG TAB PO SCH (10:01)
[2017-08-21] MEDS: LISINOPRIL 20 MG TAB PO SCH (10:01)
--- NOTE | 2017-08-21 14:14 | PN ---
PROGRESS NOTE DATE OF SERVICE: 08/20/2017 CHIEF COMPLAINT: Right-sided CVA. HISTORY OF PRESENT ILLNESS: This lady is stable. Neurologically, there has been no significant improvement. PHYSICAL EXAM: Chest is clear. The cardiac exam is normal and the abdomen is soft, nontender. Left- sided remains paralyzed. IMPRESSION: Right-sided cerebrovascular accident with left hemiparesis. PLAN: The family is looking into retirement placement closer to her home. MMODL / IJN: [id number] /
--- NOTE | 2017-08-21 19:10 | DS ---
DISCHARGE SUMMARY CHIEF COMPLAINT: Left-sided weakness. HISTORY OF PRESENT ILLNESS AND PHYSICAL EXAM: Details of this lady's history and physical can be found in the initial workup. LABORATORY STUDIES: While she was in a hospital, she had laboratory studies. Details which can be found in the laboratory section of her chart. COURSE IN HOSPITAL: After admission she was placed on bedrest, started on intravenous fluids and frequent monitoring of her neurologic status and vital signs. She never regained significant improvement in the left-sided weakness. The rest of her studies were unremarkable. It was clear that she was going to need rehab and family made arrangements for her to go into a facility close to her home. She is to be transferred there as soon as a bed is available. FINAL DIAGNOSES: 1. Cerebrovascular accident with complete left hemiparesis. 2. Hypertension. 3. Nicotine abuse. OPERATIONS: None. CONSULTATIONS: Neurology. She is improved. KARL / TIFFANIE: [id number] /
[2017-08-21] MEDS: DIAZEPAM 5 MG TAB PO PRN (20:35)
[2017-08-22] MEDS: oxyCODONE-APAP 10-325MG 1 EACH TAB PO PRN ×2 (05:19→18:52)
[2017-08-22] MEDS: CARVEDILOL 3.125 MG TAB PO SCH ×2 (06:30→16:43)
[2017-08-22] MEDS: LEVOTHYROXINE 125 MCG TAB PO SCH (06:30)
--- NOTE | 2017-08-22 06:35 | P.CONS ---
History of Present Illness - Chief Complaint Gait disturbance, left hemiplegia - History of Present Illness I had the op to see patient for inpatient rehab consultation guard to gait disturbance. She was admitted to [facility] August 17 acute onset left-sided weakness. Angio-Seal CT shows nonspecific attenuation pattern. Head CT shows chronic small vessel change. Chest x-ray negative. MRI brain demonstrates white matter change extensive. Left rib x-rays negative. PT reports moderate assistance for bed mobility maximal assistance to stand or transfer with small- based quad cane, fatigues quickly. OT reports maximal assistance for upper dressing and total assistance for lower dressing and bathing. Unable to assess toileting or transfers. Speech therapy assess swallow and recommend regular and thin liquids. Previous functional history as elicited from patient: 56-year-old right-handed white female who is lives in one floor home alone. On disability. She generally does her own cooking, laundry, driving, standing shower and gait without device. Does have a friend who comes in assist with laundry and meal preparation. Was a 2 pack a day smoker. Denies alcohol. Regular doctors Dr. Hans gastelum. Family history father of [place] and mother had diabetes. Review of Systems Review of systems: ENT: Denies sneezes or discharge. Eyes: Denies discharge or photophobia. Cardiac: Denies chest pain or palpitation. Pulmonary: Denies cough or shortness of breath. Breast: Denies discharge or lumps. Gastrointestinal: Denies nausea, emesis, constipation, diarrhea. Genitourinary: Denies discharge or frequency. Musculoskeletal: Denies muscle or bone aches. Neurologic: Left-sided plegia and numbness. Endocrine: Denies shakes or sweats. Oncology: Denies cancers. Dermatologic: Denies rash, itching, pruritus. ALLERGY/immunology: Denies sneezes, rashes. Past Medical History Past Medical History: Hypertension Additional Past Medical History / Comment(s): lupus, sjogrens Last Myocardial Infarction Date:: UNK History of Any Multi-Drug Resistant Organisms: None Reported Past Surgical History: Adenoidectomy, Appendectomy, Cholecystectomy, Heart Catheterization With Stent, Hysterectomy, Tonsillectomy Additional Past Surgical History / Comment(s): CERVICAL FUSION HAS PLATE/SCREWS AND CADAVER BONE. Past Anesthesia/Blood Transfusion Reactions: No Reported Reaction Date of Last Stent Placement:: UNK Past Psychological History: No Psychological Hx Reported Smoking Status: Current every day smoker Past Alcohol Use History: None Reported Past Drug Use History: None Reported - Past Family History Mother Family Medical History: Coronary Artery Disease (CAD), Diabetes Mellitus Additional Family Medical History / Comment(s): CABG Father Family Medical History: Coronary Artery Disease (CAD), Diabetes Mellitus, Myocardial Infarction ([place]), Vascular Disorder Medications and Allergies Home Medications Medication Instructions Recorded Confirmed Type Adalimumab [Humira Pen] 40 mg SQ TH 08/17/17 08/17/17 History Aspirin 81 mg PO DAILY 08/17/17 08/17/17 History Carvedilol [Coreg] 3.125 mg PO BID 08/17/17 08/17/17 History Clopidogrel Bisulfate [Plavix] 75 mg PO DAILY 08/17/17 08/17/17 History Diazepam [Valium] 5 mg PO BID PRN 08/17/17 08/17/17 History Ergocalciferol [Vitamin D2] 50,000 unit PO TU 08/17/17 08/17/17 History Folic Acid 1 mg PO DAILY 08/17/17 08/17/17 History Levothyroxine Sodium [Synthroid] 125 mcg PO DAILY 08/17/17 08/17/17 History Lisinopril [Prinivil] 20 mg PO DAILY 08/17/17 08/17/17 History Methotrexate Injection 20 mg SQ WE 08/17/17 08/17/17 History Nitroglycerin Sl Tabs [Nitrostat] 0.4 mg SUBLINGUAL Q5M PRN 08/17/17 08/17/17 History oxyCODONE HCL/ACETAMINOPHEN 1 tab PO TID PRN 08/17/17 08/17/17 History [Percocet 10-325 mg] Allergies Allergy/AdvReac Type Severity Reaction Status Date / Time prochlorperazine Allergy Unknown Verified 08/17/17 13:27 [From Compazine] [id number]-[id number]-Dxf Reductase Allergy Unknown Verified 08/18/17 17:12 Inhibitor Physical Exam Vitals: Vital Signs Temp Pulse Resp BP Pulse Ox 08/22/17 06:27 97.6 F 73 16 135/65 95 08/22/17 00:00 97.5 F L 63 18 127/72 91 L 08/21/17 16:05 98.4 F 80 18 151/79 95 08/21/17 12:05 98.7 F 78 18 165/86 93 L 08/21/17 08:15 96.9 F L 72 18 167/87 93 L 08/21/17 06:35 97.8 F 68 18 144/78 96 Intake and Output 08/21/17 08/21/17 08/22/17 14:59 22:59 06:59 Intake Total 530 250 Output Total 200 200 Balance 530 50 -200 Intake: IV 10 0.9 @ 20ml 10 Oral 530 240 Output: Urine 200 200 Other: # Voids 1 1 1 Skin: Good color, texture, turgor. General: Thin build and comfortable appearance. Head: Normocephalic, atraumatic. Eyes: Symmetric. Pupils equal round. Ears: Symmetric. Hearing within normal limits. Mouth: Clear. Neck: Supple. Carotid without bruit. Cardiac: Regular rate and rhythm. Lungs: Clear anteriorly and posteriorly. Abdomen: Soft active nontender. Extremities: Normal tone. Neurological: Mental status: Alert, cooperative, pleasant. Cranial nerves: Symmetric facial tone and trapezius. Motor: Normal strength and isolation right side. Left side plegic. Sensation: Intact throughout right side and absent left side. DTRs: Symmetric and equal throughout. Mobility: Sits with maximal assistance. Results CBC & Chem 7: 08/18/17 05:52 08/20/17 06:39 Chest x-ray: report reviewed (Negative. Left ribs negative.) CT Scan - head: report reviewed (Chronic small vessel change. Angio CT with nonspecific attenuation pattern.) MRI - head: report reviewed (Extensive white matter change.) Assessment and Plan (1) CVA (cerebral vascular accident) Current Visit: Yes Status: Acute Code(s): I63.9 - CEREBRAL INFARCTION, UNSPECIFIED SNOMED Code(s): 230036042 Plan: Impression: 1. Gait disturbance. 2. Right MCA infarct resultant left hemiplegia. 3. Hypertension. Comments and plan: At this time PT, OT, ST ongoing. Patient's preferences try [facility] for inpatient rehab, due to family supports. I would support this recommendation.
[2017-08-22] MEDS: POTASSIUM CHLORIDE ER 20 MEQ TAB.ER PO SCH ×2 (07:38→20:44)
[2017-08-22] MEDS: ASPIRIN 81 MG PO SCH (07:38)
[2017-08-22] MEDS: LISINOPRIL 20 MG TAB PO SCH (07:39)
[2017-08-22] MEDS: CLOPIDOGREL 75 MG TAB PO SCH (07:39)
[2017-08-22] MEDS ORDERED: ERGOCALCIFEROL 50,000 UNIT CAP PO SCH (09:00)
[2017-08-22] MEDS: FOLIC ACID 1 MG TAB PO SCH (11:08)
--- NOTE | 2017-08-22 17:00 | PN ---
PROGRESS NOTE CHIEF COMPLAINT: CVA. HISTORY OF PRESENT ILLNESS: The patient is stable and now we are awaiting rehab facility that will take her. Something happened yesterday with facilities in the [facility] that the daughters wanted to get her into. PHYSICAL EXAM: Stable and unchanged. IMPRESSION: 1. Right-sided cerebrovascular accident. 2. Lupus. 3. Hypertension. PLAN: Await rehab center that will accept her. MMPAOLOL / IJN: [id number] /
[2017-08-23] MEDS: oxyCODONE-APAP 10-325MG 1 EACH TAB PO PRN (01:21)
[2017-08-23] MEDS: LEVOTHYROXINE 125 MCG TAB PO SCH (06:54)
[2017-08-23] MEDS: POTASSIUM CHLORIDE ER 20 MEQ TAB.ER PO SCH (08:05)
[2017-08-23] MEDS: ASPIRIN 81 MG PO SCH (08:05)
[2017-08-23] MEDS: CLOPIDOGREL 75 MG TAB PO SCH (08:05)
[2017-08-23] MEDS: LISINOPRIL 20 MG TAB PO SCH (08:05)
[2017-08-23] MEDS: CARVEDILOL 3.125 MG TAB PO SCH (08:06)
[2017-08-23 08:42] VITALS: BP 140/75; PULSE 80; RESP 16; TEMP 97.2
[2017-08-23] MEDS: FOLIC ACID 1 MG TAB PO SCH (11:43)
--- NOTE | 2017-08-23 12:37 | P.PN ---
Progress Note - Text Progress Note Date: 08/23/17 Addendum to discharge summary Physical Exam: Vital signs stable, sitting up in chair, alert and oriented 3, no acute distress. CV: Regular S1 and [id number]: CTA. ABD: Soft nontender positive bowel sounds. Neuro: Speech fluent and appropriate, left facial droop, Left arm in sling, no significant movement of the left upper or lower extremity. The impression and plan of care has been dictated as directed. : I performed a history and examination of this patient, discussed the same with the dictator. I agree with the dictator's note ,documented as a scribe. Any additional findings or plans will be noted. Time taken: 35 minutes
--- NOTE | 2017-08-23 13:04 | P.DS ---
Providers Date of admission: 08/17/17 14:43 Expected date of discharge: 08/23/17 Attending physician: William Osorio Consults: 08/17/17 14:43 Consult Physician Stat Consulting Provider: Kenan Garber Consult Reason/Comments: CVA Do you want consulting provider notified?: Yes 08/21/17 17:48 Consult Physician Routine Consulting Provider: Brady Tobar Consult Reason/Comments: CVA Do you want consulting provider notified?: Yes, Notify in am Primary care physician: [facility] Course: Final Diagnoses: 1. Acute CVA with left-sided hemiparesis 2. CAD 3. CAD 4. COPD 5. Lupus 6.Sjoegren Syndrome 7. Dysphagia, no straws Hospital course: This is a 56-year-old female admitted with acute CVA with left- sided hemiparesis. Brain MRI reported acute large infarct right internal capsule, no hemorrhage. Extensive white matter changes and bilateral cerebral hemispheres, possible demyelinating disease and diffuse chronic small vessel ischemic changes. Evaluated by neurology, workup completed. Significant clinical improvement. Patient has been cleared for discharge by neurology. Patient is being discharged to [facility] inpatient rehab in stable condition with guarded prognosis. Physical Exam: Vital signs stable, sitting up in chair, alert and oriented 3, no acute distress. CV: Regular S1 and [id number]: CTA. ABD: Soft nontender positive bowel sounds. Neuro: Speech fluent and appropriate, left facial droop, Left arm in sling, no significant movement of the left upper or lower extremity. The impression and plan of care has been dictated as directed. : I performed a history and examination of this patient, discussed the same with the dictator. I agree with the dictator's note ,documented as a scribe. Any additional findings or plans will be noted. Time taken: 35 minutes Patient Condition at Discharge: Stable Plan - Discharge Summary Discharge Rx Participant: Yes New Discharge Prescriptions: New Potassium Chloride ER [K-Dur 20] 20 meq PO BID tab.er.prt Continue Lisinopril [Prinivil] 20 mg PO DAILY Ergocalciferol [Vitamin D2 (DRISDOL)] 50,000 unit PO TU Aspirin 81 mg PO DAILY Clopidogrel Bisulfate [Plavix] 75 mg PO DAILY Folic Acid 1 mg PO DAILY Nitroglycerin Sl Tabs [Nitrostat] 0.4 mg SUBLINGUAL Q5M PRN PRN Reason: Chest Pain Carvedilol [Coreg] 3.125 mg PO BID Levothyroxine Sodium [Synthroid] 125 mcg PO DAILY Adalimumab [Humira Pen] 40 mg SQ TH Methotrexate Injection 20 mg SQ WE Diazepam [Valium] 5 mg PO BID PRN #10 tab PRN Reason: Anxiety oxyCODONE HCL/ACETAMINOPHEN [Percocet 10-325 mg] 1 tab PO TID PRN #12 tablet PRN Reason: Pain Discharge Medication List Adalimumab [Humira Pen] 40 mg SQ TH 08/17/17 [History] Aspirin 81 mg PO DAILY 08/17/17 [History] Carvedilol [Coreg] 3.125 mg PO BID 08/17/17 [History] Clopidogrel Bisulfate [Plavix] 75 mg PO DAILY 08/17/17 [History] Ergocalciferol [Vitamin D2 (DRISDOL)] 50,000 unit PO 08/17/17 [History] Folic Acid 1 mg PO DAILY 08/17/17 [History] Levothyroxine Sodium [Synthroid] 125 mcg PO DAILY 08/17/17 [History] Lisinopril [Prinivil] 20 mg PO DAILY 08/17/17 [History] Methotrexate Injection 20 mg SQ WE 08/17/17 [History] Nitroglycerin Sl Tabs [Nitrostat] 0.4 mg SUBLINGUAL Q5M PRN 08/17/17 [History] Diazepam [Valium] 5 mg PO BID PRN #10 tab 08/23/17 [Rx] Potassium Chloride ER [K-Dur 20] 20 meq PO BID tab.er.prt 08/23/17 [Rx] oxyCODONE HCL/ACETAMINOPHEN [Percocet 10-325 mg] 1 tab PO TID PRN #12 tablet [Rx] Follow up Appointment(s)/Referral(s): Neurology, At [facility] [Other] - 2 Weeks [facility] [Other] - 3 Days Nonstaff,Physician [REFERRING] - 1-2 days Ramakrishna Ngo DO [Primary Care Provider] - 1 Week (After DC from subacute rehab) Activity/Diet/Wound Care/Special Instructions: cbc,bmp in 3 days Diet: cardiac, no straws
== END 2017-08-23 13:23 | disposition still patient (30) | DRG 65 ==
LOC: EC 12:52 → 6SEL 14:43 → 4MS4W 08-22 23:16
PROVIDERS: ADMIT Family Medicine; ATTEND Family Medicine
DX: I63.511 Cerebral infarction due to unspecified occlusion or stenosis of right middle cerebral artery (principal); G81.94 Hemiplegia, unspecified affecting left nondominant side; E87.6 Hypokalemia; F17.210 Nicotine dependence, cigarettes, uncomplicated; I10 Essential (primary) hypertension; I25.10 Atherosclerotic heart disease of native coronary artery without angina pectoris; I25.2 Old myocardial infarction; J44.9 Chronic obstructive pulmonary disease, unspecified; L93.0 Discoid lupus erythematosus; M35.00 Sjogren syndrome, unspecified; R13.10 Dysphagia, unspecified; Z79.02 Long term (current) use of antithrombotics/antiplatelets; Z79.82 Long term (current) use of aspirin; Z82.49 Family history of ischemic heart disease and other diseases of the circulatory system; Z83.3 Family history of diabetes mellitus; Z90.710 Acquired absence of both cervix and uterus; Z88.8 Allergy status to other drugs, medicaments and biological substances; Z95.5 Presence of coronary angioplasty implant and graft; Z79.899 Other long term (current) drug therapy
CPT/HCPCS: 36415; 70450; 70496; 70498; 70553; 71046; 80048; 80053; 80061; 82550; 82553; 84484; 85025; 85610; 85730; 93005; 96361; 96374; 99285